=== PATIENT | female | born 1960 | race Caucasian/White ===

== ENCOUNTER → 2020-07-31 | Outpatient (CLI) | payer BC ==
--- NOTE | 2020-07-31 09:58 | Diagnostic Imaging Report ---
PROCEDURE: US Hepatic (Liver). TECHNIQUE: Multiple real-time grayscale images were obtained over the right upper quadrant in various projections. INDICATION: Elevated liver enzymes Liver has increased echogenicity suggesting fatty infiltration. The portal vein is patent with hepatopetal flow. There are calculi in the gallbladder. The gallbladder wall is not thickened. Common duct is not appreciably dilated. Visualized portions of the pancreas appear normal. The aorta and IVC appear normal. Right kidney measures 10.8 cm length and appears normal. There is no ascites. IMPRESSION: Cholecystolithiasis. Hepatic steatosis. Dictated by: Dictated on workstation # [id number]
== END ==
LOC: RAD 09:00
PROVIDERS: ATTEND Nurse Practitioner
DX: K76.0 Fatty (change of) liver, not elsewhere classified (principal); K80.20 Calculus of gallbladder without cholecystitis without obstruction
CPT/HCPCS: 76705

== ENCOUNTER 2020-09-10 11:25 | Outpatient (CLI) | payer BC ==
[~2020-09-10] VITALS: Ht 167.6 cm; Wt 65.4 kg
[2020-09-10] MEDS ORDERED: [UNRECOGNIZED DRUG - OTHER] PO (14:40)
[2020-09-10] MEDS ORDERED: FENO160T12 PO (14:40)
[2020-09-10] MEDS ORDERED: DULO60CA59 PO (14:40)
[2020-09-10] MEDS ORDERED: OMEP40CA27 PO (14:40)
[2020-09-10] MEDS ORDERED: GABA300C PO (14:40)
[2020-09-10] MEDS ORDERED: BUPR300T98 PO (14:40)
[2020-09-10] MEDS ORDERED: ERGO2000 PO (14:40)
== END 2020-09-10 14:43 | disposition home or self-care (01) ==
LOC: PREOP 11:25
PROVIDERS: ATTEND Surgery
DX: Z01.818 Encounter for other preprocedural examination (principal)

== ENCOUNTER 2020-11-13 06:39 | Outpatient (CLI) | payer BC ==
[~2020-11-13] VITALS: Ht 167.7 cm; Wt 65.0 kg
[~2020-11-13 06:39] MED LIST: BUPR300T98 PO; DULO60CA59 PO; ERGO2000 PO; FENO160T12 PO; GABA300C PO; OMEP40CA27 PO; [UNRECOGNIZED DRUG - OTHER] PO
== END 2020-11-17 11:00 | disposition home or self-care (01) ==
LOC: PREOP 06:39
PROVIDERS: ATTEND Surgery
DX: Z01.818 Encounter for other preprocedural examination (principal)

== ENCOUNTER 2020-11-20 09:33 | Day surgery (SDC) | payer BC, MEDICARE ==
[2020-11-20] VITALS (11 sets, daily range): BP systolic 122–143; BP diastolic 64–82
[~2020-11-20] VITALS: Ht 167.7 cm; Wt 65.0 kg
[~2020-11-20 09:33] MED LIST changes: -OMEP40CA27 PO; +OMEP40CA6 PO
[2020-11-20] MEDS ORDERED: ceFAZolin INJECTION 1,000 MG in WATER (STERILE) FOR INJECTION 10 ML IV ONE (10:00)
[2020-11-20] MEDS ORDERED: LIDOCAINE/EPI 1%-1:200,000 (XYLOCAINE) 30 ML VIAL ONE (10:36)
--- NOTE | 2020-11-20 10:40 | Progress Note-Pre Operative ---
Pre-Operative Progress Note H&P Reviewed The H&P was reviewed, patient examined and no changes noted. Date Seen by Provider: Nov 20, 2020 Time Seen by Provider: 10: Date H&P Reviewed: Nov 20, 2020 Time H&P Reviewed: 10:30 Pre-Operative Diagnosis: sx chronic calculous cholecystitis JUAN LAMA MD Nov 20, 2020 10:40
--- NOTE | 2020-11-20 10:41 | Discharge Inst-Surgical ---
D/C Lap Instructions-KELBY New, Converted, or Re-Newed RX: RX on Chart Follow Up Appt in 2 weeks Activity as tolerated No driving for 24 hours No driving while on pain medications Incentive Spirometry use every 2 hours while awake Regular Diet Symptoms to Report: Fever over 101 degree F, Nausea/Vomiting Infection Signs and Symptoms to report: Increased redness, Foul odor of wound, Increased drainage Bathing instructions: May shower Operative Area Clean/Dry; Keep incision clean/dry If any problems/questions: Contact your physician or go to Emergency Room JUAN LAMA MD Nov 20, 2020 10:41
[2020-11-20] MEDS ORDERED: HYDROcodone/APAP 5 MG/325 MG (LORTAB) TAB PO PRN (10:45)
[2020-11-20] MEDS ORDERED: morphine INJ 10 MG/ML 1ML (SYR OR VIAL) IVP PRN ×2 (10:45)
[2020-11-20] MEDS ORDERED: ONDANSETRON 4 MG/2 ML (SDV) Z0FRAN IVP PRN ×2 (10:45→13:00)
[2020-11-20] MEDS ORDERED: ACETAMINOPHEN 325 MG TABLET PO PRN (10:45)
[2020-11-20] MEDS ORDERED: HYDR-3817 PO (10:49)
[2020-11-20] MEDS ORDERED: MIDAZOLAM 2 MG/2 ML (VERSED) VIAL ONE ×2 (10:53→10:58)
[2020-11-20] MEDS ORDERED: ONDANSETRON 4 MG/2 ML (SDV) Z0FRAN ONE (10:57)
[2020-11-20] MEDS ORDERED: proPOfol 200 MG/20 ML (DIPRIVAN) VIAL IV ONE (10:57)
[2020-11-20] MEDS ORDERED: LIDOCAINE PF 2% 5 ML (XYLOCAINE) VIAL ONE (10:57)
[2020-11-20] MEDS ORDERED: SEVOFLURANE (ULTANE) 15 ML INHAL SOLN ONE (10:57)
[2020-11-20] MEDS: LACTATED RINGERS 1,000 ML IV PRN ×2 (10:58→12:12)
[2020-11-20] MEDS ORDERED: fentaNYL INJ 100 MCG/2 ML AMP ONE ×2 (10:58→13:00)
[2020-11-20] MEDS ORDERED: MIDAZOLAM 2 MG/2 ML (VERSED) VIAL IV ONE ×2 (11:00)
[2020-11-20] MEDS ORDERED: FAMOTIDINE 20MG/2ML IV (PEPCID) IV ONE ×2 (11:00)
[2020-11-20] MEDS ORDERED: ONDANSETRON 4 MG/2 ML (SDV) Z0FRAN IV ONE ×2 (11:00)
[2020-11-20] MEDS ORDERED: ROCURONIUM 10 MG/ML 5 ML SYRINGE IV ONE (11:51)
[2020-11-20] MEDS ORDERED: morphine INJ 10 MG/ML 1ML (SYR OR VIAL) ONE (12:22)
[2020-11-20] MEDS ORDERED: ATROPINE INJ 0.4 MG/ML SDV ONE (12:23)
[2020-11-20] MEDS ORDERED: NEOSTIGMINE 3 MG/3 ML VIAL ONE (12:40)
[2020-11-20] MEDS ORDERED: GLYCOPYRROLATE 0.2 MG/ML (ROBINUL) 2 ML VIAL ONE (12:40)
--- NOTE | 2020-11-20 12:41 | Progress Note-Post Operative ---
Post-Operative Progess Note Surgeon (s)/Photoengraving Apprentice (s) Surgeon JUAN LAMA MD Photoengraving Apprentice: kathleen guzman DATABASE SOFTWARE TECHNICIAN Pre-Operative Diagnosis sx chronic calculous cholecystitis Post-Operative Diagnosis same Procedure & Operative Findings Date of Procedure 11/20/20 Procedure Performed/Findings laparoscopic cholecystectomy Anesthesia Type get Estimated Blood Loss Estimated blood loss (mL): minimal Specimens/Packing Specimens Removed gallbladder JUAN LAMA MD Nov 20, 2020 12:41
[2020-11-20] MEDS ORDERED: morphine INJ 10 MG/ML 1ML (SYR OR VIAL) IVP ONE (13:00)
[2020-11-20] MEDS ORDERED: MEPERIDINE (DEMEROL) INJ 50 MG/ML IVP ONE (13:00)
[2020-11-20] MEDS ORDERED: fentaNYL INJ 100 MCG/2 ML AMP IVP ONE (13:00)
--- NOTE | 2020-11-20 13:32 | Anesthesia-General Post-Op ---
General Patient Condition Mental Status/LOC: Same as Preop Cardiovascular: Satisfactory Nausea/Vomiting: Absent Respiratory: Satisfactory Pain: Controlled Complications: Absent Post Op Complications Complications None Follow Up Care/Instructions Patient Instructions None needed. Anesthesia/Patient Condition Patient Condition Patient is doing well, no complaints, stable vital signs, no apparent adverse anesthesia problems. LUTHER OSWALD DO Nov 20, 2020 13:32
--- NOTE | 2020-11-20 17:25 | OPERATIVE REPORT ---
DATE OF SERVICE: 11/20/2020 PREOPERATIVE DIAGNOSIS: Symptomatic chronic calculous cholecystitis. POSTOPERATIVE DIAGNOSIS: Symptomatic chronic calculous cholecystitis. PROCEDURE: Laparoscopic cholecystectomy. SURGEON: Juan Lama MD. ANESTHESIA: General endotracheal. ESTIMATED BLOOD LOSS: Minimal. FINDINGS: Solitary stone. DISPOSITION: The patient tolerated the procedure well. INDICATIONS: The patient is a 60-year-old female referred over to us for symptomatic cholelithiasis. She has known about this for greater than 10 years; however, she has had progressive symptoms with a right upper abdominal quadrant pain with associated nausea and vomiting, which was initially mild and infrequent; however, has become significantly more severe as well as more frequent. Formal ultrasound was performed, which did show cholelithiasis. DESCRIPTION OF PROCEDURE: The patient was brought to the operating room, laid supine on the table. After adequate IV pain and sedative medications and general endotracheal intubation, the abdomen was prepped and draped in standard surgical fashion. A 0.5% Marcaine with epinephrine was used to anesthetize the overlying skin in the left upper abdominal quadrant and a transverse skin incision made using a 15 blade. An 0 silk suture was applied to the medial aspect incision for retraction and a Veress needle inserted with a low opening pressure of 0 mmHg. The abdomen was then insufflated to 15 mmHg pressure. The Veress needle removed and a 5 mm XL trocar placed followed by a 5 mm 45-degree angle laparoscope visualizing the peritoneal cavity. A 4-quadrant abdominal exploration was performed. There were omental adhesions towards the fundus of the gallbladder. Under direct visualization, we then proceed to place a supraumbilical 10 mm port after the skin and peritoneal lining were anesthetized using 0.5% Marcaine with epinephrine and a transverse skin incision made using a 15 blade. In a similar manner, a right upper abdominal quadrant 5 mm port was placed. The patient was then placed in a reverse Trendelenburg position as well as plane right side up, left side down. The fundus of the gallbladder was then retracted anteriorly and superiorly. The omental adhesions were then taken down using blunt dissection. The hepatoduodenal ligament was then dissected using blunt dissection as well as electrocautery on hook instrument as well as a [place] dissector. The entire critical view of safety was identified including the triangle of Calot as well as the cystic duct and artery as only two structures going into the gallbladder as well as the cystic plate behind the proximal gallbladder. A timeout was then taken and the cystic duct and artery were then clipped proximally and distally and cut with EndoShears. The gallbladder was then dissected off the liver bed using cautery with visualization of good hemostasis as well as no leaking ducts of Luschka. The gallbladder was removed through the 10 mm port site using an EndoCatch bag. The 10 mm port site fascia and peritoneum were then closed under direct visualization using a Tunde-Rupesh device and 0 Vicryl suture. The abdomen was desufflated and remaining ports were removed. All skin incisions were closed using 4-0 Monocryl running subcuticular suture. Wounds were then cleaned and covered with Dermabond. The patient tolerated the procedure well. We will start IV and oral pain medication as well as a clear liquid diet. When she is tolerating clears, has good pain control with oral pain medications, ambulating well, we will discharge her home. Job ID: [id number] DocumentID: [id number] Dictated Date: 11/20/2020 12:51:41 Boiling House Oiler Date: 11/20/2020 17:25:22 Dictated By: JUAN LAMA MD
--- NOTE | 2020-11-21 12:43 | HISTORY AND PHYSICAL ---
DATE OF SERVICE: 11/20/2020 PROCEDURE DATE: 11/20/2020. HISTORY OF PRESENT ILLNESS: This is a 60-year-old female who was referred over to us for gallstones. She reports that for the past several years. She has had episodes of reflux, and diarrhea as well as pain beneath the posterior right shoulder blade as well as some nausea. She reports that over time that her symptoms have progressed and become worse and has even had episodes of vomiting. She reports that over the last 2 to 3 months, she has had several episodes of diarrhea daily as well as the nausea and will occasionally have some vomiting. She reports that she continues to have the back pain beneath the posterior right shoulder blade as well as reflux and bloating. She did have recent lab work, which did show increased liver enzymes and underwent an ultrasound of the liver, which did show fatty infiltration as well as cholelithiasis. Upon further questioning, she denied any foods that make her symptoms worse. She also denied any fever or chills. PAST MEDICAL HISTORY: Gastroesophageal reflux disease, hypercholesterolemia, hypertension, chronic back pain, L4-L5 bulging disk. PAST SURGICAL HISTORY: Complete vaginal hysterectomy in 2011, bilateral cataracts. ALLERGIES: No known drug allergies. MEDICATIONS: Gabapentin 300 mg b.i.d., tramadol, fenofibrate 160 mg daily, duloxetine 60 mg daily, bupropion XL 300 mg daily, vitamin D2, Omeprazole 40 mg daily, estradiol, progesterone. SOCIAL HISTORY: Positive for tobacco smoke at half a pack per day for 20 years. Social for alcohol. FAMILY HISTORY: Father, hypertension. Brother, hypertension. Child with hypertension. Maternal grandmother, breast cancer, paternal grandfather, myocardial infarction. Paternal grandmother, stroke. VITAL SIGNS: Blood pressure is 134/83. Current weight 144.1 pounds at 5 feet 6 inches. REVIEW OF SYSTEMS: This is a well-nourished female in no acute distress. She is not experiencing any shortness of breath or difficulty breathing. No chest pain, palpitations or diaphoresis. She does report episodes of nausea and vomiting. She denies any abdominal pain, but did report pain of the right posterior shoulder blade. She did report episodes of diarrhea, but denies any constipation. She reports reflux. No red blood per rectum. No dark tarry stools. No fever or chills. No recent inadvertent weight loss. All other review of systems negative. PHYSICAL EXAMINATION: CHEST: Clear. Good breath sounds bilaterally. HEART: Regular, no murmurs. EXTREMITIES: No lower extremity edema. Negative Homans sign. HEENT: No scleral icterus. NECK: No cervical lymphadenopathy. ABDOMEN: Soft, nondistended. There is some right upper quadrant tenderness with moderate to deep palpation. SKIN: Warm, dry and pink. NEUROLOGIC: Awake, alert and oriented x3. ASSESSMENT AND PLAN: A 60-year-old female with chronic calculous cholecystitis. At this time, we will recommend proceeding with a laparoscopic cholecystectomy. The risks and benefits of the procedure as well as the procedure and homecare instructions were explained to the patient. The patient verbalized understanding of instructions and agrees to proceed as planned. At this time, we will proceed with scheduling her for a laparoscopic cholecystectomy. Job ID: [id number] DocumentID: [id number] Dictated Date: 11/04/2020 13:37:33 Supply Specialist Date: 11/04/2020 13:52:19 Dictated By: BORIS MIX APRN <Dictated by BORIS MIX APRN> <Electronically signed by JUAN LAMA MD> 11/04/20 1551 [facility] SYSTEM[facility]ato
== END 2020-11-20 15:05 ==
LOC: SDC 09:33
PROVIDERS: ATTEND Surgery
DX: K80.10 Calculus of gallbladder with chronic cholecystitis without obstruction (principal); K66.0 Peritoneal adhesions (postprocedural) (postinfection); I10 Essential (primary) hypertension; E78.5 Hyperlipidemia, unspecified; E78.00 Pure hypercholesterolemia, unspecified; G89.29 Other chronic pain; M54.9 Dorsalgia, unspecified; K21.9 Gastro-esophageal reflux disease without esophagitis; F17.210 Nicotine dependence, cigarettes, uncomplicated; Z90.710 Acquired absence of both cervix and uterus; Z79.899 Other long term (current) drug therapy; Z80.3 Family history of malignant neoplasm of breast; Z82.3 Family history of stroke
CPT/HCPCS: 87081

== ENCOUNTER → 2021-02-10 | Outpatient (CLI) | payer BC, OTHER ==
[~2021-02-10] MED LIST changes: +HYDR-3817 PO
--- NOTE | 2021-02-10 10:39 | Diagnostic Imaging Report ---
EXAMINATION: Lumbosacral spine 2 or 3 views. HISTORY: Back pain. COMPARISON: None available. FINDINGS: There is a mild levoconvex scoliosis. There is minimal grade 1 retrolisthesis of L3 on L4 with remaining alignment preserved. Vertebral body heights maintained. Facet hypertrophy is seen throughout the lumbar spine with intervertebral disc space narrowing at all levels, most marked at L4-L5 and L5-S1. No acute osseous abnormality is appreciated. There are clips in the right upper quadrant. IMPRESSION: 1. Scoliotic deformity with degenerative findings as noted. Dictated by: Dictated on workstation # [id number]
== END ==
LOC: RAD 09:47
PROVIDERS: ATTEND Family Medicine
DX: Z02.71 Encounter for disability determination (principal); M47.817 Spondylosis without myelopathy or radiculopathy, lumbosacral region; M41.87 Other forms of scoliosis, lumbosacral region
CPT/HCPCS: 72100

== ENCOUNTER 2022-05-13 18:37 | Inpatient (IN) | payer BC ==
[~2022-05-13] VITALS: Ht 167 cm; Wt 67.3 kg
--- NOTE | 2022-05-13 18:58 | ED Chest Pain ---
General Chief Complaint: Chest Pain Stated Complaint: CHEST PAINS History of Present Illness Date Seen by Provider: May 13, 2022 Time Seen by Provider: 18:35 Initial Comments 62-year-old female presents for chest pain. It was intermittent yesterday and has been constant for about the last hour. No history of cardiac disease. No history of lung disease. She has felt generally weak and is feeling short of breath. She describes her pain as starting in her left jaw yesterday intermittently as tightness. She now has tightness and pressure in her anterior chest that radiates to her back. No aggravating or alleviating factors and is constant, severe. No nausea vomiting diaphoresis. No unilateral lower extremity pain or swelling. No history of DVT, PE. She does have a history of hypertension and hyperlipidemia. Allergies and Home Medications Allergies Coded Allergies: No Known Drug Allergies (Unverified , 11/17/20) Patient Home Medication List Home Medication List Reviewed: Yes Alprazolam (Alprazolam) 0.5 Mg Tablet, 0.5 MG PO HS PRN for ANXIETY, (Reported) Entered as Reported by: FERNANDA MEAD on 05/14/221426 Last Action: Reviewed Bupropion HCl (Bupropion Xl) 300 Mg Tab.er.24h, 300 MG PO DAILY, (Reported) Entered as Reported by: JAIDA GUZMAN on 09/10/201439 Last Action: Reviewed Duloxetine HCl (Duloxetine HCl) 60 Mg Capsule.dr, 60 MG PO DAILY, (Reported) Entered as Reported by: JAIDA GUZMAN on 09/10/201439 Last Action: Reviewed Fenofibrate (Fenofibrate) 160 Mg Tablet, 160 MG PO DAILY, (Reported) Entered as Reported by: JAIDA GUZMAN on 09/10/201439 Last Action: Reviewed Gabapentin (Neurontin) 300 Mg Capsule, 300 MG PO BID PRN for PAIN-BREAKTHROUGH, (Reported) Entered as Reported by: JAIDA GUZMAN on 09/10/201439 Last Action: Reviewed Levothyroxine Sodium (Levothyroxine Sodium) 50 Mcg Tablet, 50 MCG PO DAILY, (Reported) Entered as Reported by: FERNANDA MEAD on 05/14/221426 Last Action: Reviewed Pantoprazole Sodium (Pantoprazole Sodium) 20 Mg Tablet.dr, 20 MG PO BID, (Reported) Entered as Reported by: FERNANDA MEAD on 05/14/221426 Last Action: Reviewed Tramadol HCl (Tramadol HCl) 50 Mg Tablet, 50 MG PO BID PRN for PAIN-MODERATE (5- 7), (Reported) Entered as Reported by: FERNANDA MEAD on 05/14/221426 Last Action: Reviewed [Estradiol/Progestero] 3.5/300 CAP, 1 EA PO DAILY, (Reported) Entered as Reported by: FERNANDA MEAD on 05/14/221426 Last Action: Reviewed Discontinued Medications Ergocalciferol (Vitamin D2) (Vitamin D2) 50 Mcg Tablet, 50 MCG PO DAILY, (Reported) Discontinued Reason: No Longer Taking Entered as Reported by: JAIDA GUZMAN on 09/10/201439 Last Action: Discontinued Hydrocodone/Acetaminophen (Hydrocodone-Acetamin 7.5-325) 1 Each Tablet, 1 EACH PO Q4H PRN for PAIN-BREAKTHROUGH Discontinued Reason: No Longer Taking Prescribed by: BORIS MIX on 11/20/20 1049 Last Action: Discontinued Omeprazole (Omeprazole) 40 Mg Capsule., 40 MG PO DAILY, (Reported) Discontinued Reason: No Longer Taking Entered as Reported by: JAIDA GUZMAN on 09/10/201439 Last Action: Discontinued [estradiol-progester] , 1 TAB PO UD, (Reported) Discontinued Reason: Duplicate Order Entered as Reported by: JAIDA GUZMAN on 09/10/201439 Last Action: Discontinued Review of Systems Review of Systems Constitutional: weakness EENTM: No Symptoms Reported Respiratory: Shortness of Air Cardiovascular: Chest Pain Gastrointestinal: No Symptoms Reported Genitourinary: No Symptoms Reported Musculoskeletal: no symptoms reported Skin: no symptoms reported Psychiatric/Neurological: No Symptoms Reported Endocrine: No Symptoms Reported Hematologic/Lymphatic: No Symptoms Reported Past [id number] Hx Patient Social History Tobacco Use?: No Use of E-Cig and/or Vaping dev: No Substance use?: No Alcohol Use?: No Seasonal Allergies Seasonal Allergies: No Past Medical History Surgery/Hospitalization HX: Hypertension, hyperlipidemia Surgeries: Yes (STONE BASKET RETRIEVAL) Hysterectomy Respiratory: No Currently Using CPAP: No Currently Using BIPAP: No Cardiac: Yes (IRREGULAR WITH PVC'S) High Cholesterol, Irregular Heartbeat Neurological: Yes Headaches /Migraines 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 Genitourinary: Yes Kidney Stones Gastrointestinal: Yes Gastroesophageal Reflux, Hemorrhoids, Chronic Diarrhea, Gall Bladder Disease Musculoskeletal: Yes (BULGING DISC) Arthritis, Chronic Back Pain Endocrine: No HEENT: No (cataracts removed, veneers on teeth) Cancer: No Psychosocial: Yes Anxiety Integumentary: No Blood Disorders: No Family Medical History Reviewed Nursing Family Hx No Pertinent Family Hx Physical Exam Vital Signs Vital Signs - First Documented 05/13/22 18:46 Temp 36.3 Pulse 62 Resp 16 B/P (MAP) 144/83 (103) Pulse Ox 100 O2 Delivery Room Air Capillary Refill : Height, Weight, BMI Height: '" Weight: lbs. oz. kg; 23.11 BMI Method: General Appearance: WD/WN, Moderate Distress (Appears to be in significant amount of pain) Neck: Normal Inspection, Non Tender, Supple Respiratory: Chest Non Tender, Lungs Clear, Normal Breath Sounds, No Accessory Muscle Use, No Respiratory Distress Cardiovascular: Regular Rate, Rhythm, No Edema, No Murmur, Normal Peripheral Pu lses Gastrointestinal: Normal Bowel Sounds, No Organomegaly, No Pulsatile Mass, Non Tender, Soft Extremity: Normal Capillary Refill, Normal Inspection, Normal Range of Motion, Non Tender, No Calf Tenderness Neurologic/Psychiatric: Alert, Oriented x3, Normal Mood/Affect Skin: Normal Color, Warm/Dry Lymphatic: No Adenopathy Procedures/Interventions Additional Procedures: cardioversion/defib Progress Awaiting Hand Model to arrive the patient had ventricular fibrillation where she went unresponsive. This was recognized immediately and synchronized cardioversion performed at 200 J with return of sinus rhythm and consciousness. She had stable blood pressure thereafter. She was then taken to the Hand Model emergently immediately after cardioversion. Critical Care Note Critical Care Total Time (minutes) 30 Progress/Results/Core Measures Results/Orders Lab Results Laboratory Tests Test 05/13/22 18:55 Range/Units White Blood Count 14.9 H 4.3-11.0 10^3/uL Red Blood Count 4.41 3.80-5.11 10^6/uL Hemoglobin 14.7 11.5-16.0 g/dL Hematocrit 41 35-52 % Mean Corpuscular Volume 94 80-99 fL Mean Corpuscular Hemoglobin 33 25-34 pg Mean Corpuscular Hemoglobin Concent 36 32-36 g/dL Red Cell Distribution Width 11.5 10.0-14.5 % Platelet Count 359 130-400 10^3/uL Mean Platelet Volume 8.6 L 9.0-12.2 fL Immature Granulocyte % (Auto) 0 % Neutrophils (%) (Auto) 38 L 42-75 % Lymphocytes (%) (Auto) 54 H 12-44 % Monocytes (%) (Auto) 6 0-12 % Eosinophils (%) (Auto) 1 0-10 % Basophils (%) (Auto) 1 0-10 % Neutrophils # (Auto) 5.7 1.8-7.8 10^3/uL Lymphocytes # (Auto) 8.1 H 1.0-4.0 10^3/uL Monocytes # (Auto) 0.9 0.0-1.0 10^3/uL Eosinophils # (Auto) 0.2 0.0-0.3 10^3/uL Basophils # (Auto) 0.1 0.0-0.1 10^3/uL Immature Granulocyte # (Auto) 0.0 0.0-0.1 10^3/uL Neutrophils % (Manual) 38 % Monocytes % (Manual) 6 % Eosinophils % (Manual) 2 % Band Neutrophils 54 % Blood Morphology Comment NORMAL Prothrombin Time 12.4 12.2-14.7 SEC INR Comment 0.9 0.8-1.4 Activated Partial Thromboplast Time 26 24-35 SEC Sodium Level 143 135-145 MMOL/L Potassium Level 3.3 L 3.6-5.0 MMOL/L Chloride Level 107 98-107 MMOL/L Carbon Dioxide Level 19 L 21-32 MMOL/L Anion Gap 17 H 5-14 MMOL/L Blood Urea Nitrogen 8 7-18 MG/DL Creatinine 0.91 0.60-1.30 MG/DL Estimat Glomerular Filtration Rate 70 BUN/Creatinine Ratio 9 Glucose Level 119 H 70-105 MG/DL Calcium Level 10.2 H 8.5-10.1 MG/DL Corrected Calcium 10.0 8.5-10.1 MG/DL Magnesium Level 1.9 1.6-2.4 MG/DL Total Bilirubin 0.2 0.1-1.0 MG/DL Aspartate Amino Transf (AST/SGOT) 18 5-34 U/L Alanine Aminotransferase (ALT/SGPT) 18 0-55 U/L Alkaline Phosphatase 101 40-136 U/L Myoglobin 31.5 10.0-92.0 NG/ML Troponin I 0.045 H <0.028 NG/ML Total Protein 7.6 6.4-8.2 GM/DL Albumin 4.3 3.2-4.5 GM/DL My Orders Orders - TOMMYDINORAH Manjarrez Hugh DO Ekg Tracing (05/13/22 18:43) Nitroglycerin 0.4 Mg Btl 25's (Nitrostat (05/13/22 19:00) Aspirin Chewable Tablet (Baby Aspirin Ch (05/13/22 19:00) Cbc With Automated Diff (05/13/22 18:53) Magnesium (05/13/22 18:53) Chest 1 View, Ap/Pa Only (05/13/22 18:53) Comprehensive Metabolic Panel (05/13/22 18:53) Myoglobin Serum (05/13/22 18:53) Protime With Inr (05/13/22 18:53) Partial Thromboplastin Time (05/13/22 18:53) Monitor-Rhythm Ecg Trace Only (05/13/22 18:53) Ed Iv/Invasive Line Start (05/13/22 18:53) Troponin I Coal (05/13/22 18:53) Manual Differential (05/13/22 18:55) Vital Signs/I&O 05/13/22 18:46 Temp 36.3 Pulse 62 Resp 16 B/P (MAP) 144/83 (103) Pulse Ox 100 O2 Delivery Room Air EKG : Comment Sinus rhythm with a rate of 58 bpm. Normal intervals. Left axis deviation. ST elevation in 1 aVL V2 with reciprocal changes in 3 and aVF. No ectopy. Positive for STEMI Departure Communication (Admissions) EKG identified STEMI. I notified Dr. Patel at 1852. Request activation of the Hand Model. I have ordered aspirin and nitroglycerin for her. Pressures are stable at present. Unfortunately there is a delay in orthodontic laboratory technician staff arrival due to an accident in town delaying traffic. While awaiting the Hand Model the patient had a ventricular fibrillation arrest suddenly. This was identified immediately in a single synchronized fibrillation of 200 J was administered. Patient immediately resumed sinus rhythm. Was then answering questions. She was taken very shortly after to the Hand Model. Impression Primary Impression: STEMI (ST elevation myocardial infarction) Qualified Codes: I21.3 - ST elevation (STEMI) myocardial infarction of unspecified site Additional Impression: Ventricular fibrillation Disposition: ADMITTED INPATIENT Condition: Critical Admissions Decision to Admit Reason: Admit from ER (General) Decision to Admit/Date: May 13, 2022 Time/Decision to Admit Time: 18:52 Departure-Patient Inst. Referrals: RUMA VARGAS DO (PCP/Family) Primary Care Physician DINORAH SANDERS DO May 13, 2022 18:58
[2022-05-13] MEDS ORDERED: ASPIRIN 81 MG CHEW (CHILDREN'S ASA) PO ONE (19:00)
[2022-05-13] MEDS ORDERED: NITROGLYCERIN 0.4 MG SL TABS BTL 25'S SL PRN (19:00)
[2022-05-13] MEDS ORDERED: morphine INJ 10 MG/ML 1ML (SYR OR VIAL) IVP STA (19:00)
[2022-05-13] MEDS ORDERED: morphine INJ 10 MG/ML 1ML (SYR OR VIAL) ONE (19:00)
[2022-05-13 19:03] LABS: BASOPHILS # (AUTO) 0.1 10^3/uL (0.0-0.1); BASOPHILS % (AUTO) 1 % (0-10); EOSINOPHILS # (AUTO) 0.2 10^3/uL (0.0-0.3); EOSINOPHILS % (AUTO) 1 % (0-10); HEMATOCRIT 41 % (35-52); HEMOGLOBIN 14.7 g/dL (11.5-16.0); LYMPHOCYTES # (AUTO) 8.1 10^3/uL (1.0-4.0); LYMPHOCYTES % (AUTO) 54 % (12-44); MEAN CORPUSCULAR HEMOGLOBIN 33 pg (25-34); MEAN CORPUSCULAR HGB CONC 36 g/dL (32-36); MEAN CORPUSCULAR VOLUME 94 fL (80-99); MEAN PLATELET VOLUME 8.6 fL (9.0-12.2); MONOCYTES # (AUTO) 0.9 10^3/uL (0.0-1.0); MONOCYTES % (AUTO) 6 % (0-12); NEUTROPHILS # (AUTO) 5.7 10^3/uL (1.8-7.8); NEUTROPHILS % (AUTO) 38 % (42-75); PLATELET COUNT 359 10^3/uL (130-400); WHITE BLOOD COUNT 14.9 10^3/uL (4.3-11.0)
[2022-05-13] MEDS ORDERED: ONDANSETRON 4 MG/2 ML (SDV) Z0FRAN ONE (19:05)
--- NOTE | 2022-05-13 19:05 | Diagnostic Imaging Report ---
INDICATION: Chest pain. COMPARISON: None. FINDINGS: Single frontal radiographic view of the chest was obtained and shows normal cardiac silhouette. Pulmonary vasculature is mildly prominent. Pulmonary interstitium is also mildly diffusely prominent. There is no focal alveolar consolidation, large effusion or pneumothorax. Osseous structures show no gross acute abnormality. IMPRESSION: 1. Mild pulmonary vascular congestion. 2. Mild diffuse coarse prominence of the interstitium. This may be on the basis of underlying interstitial edema as well, although interstitial pneumonia or chronic interstitial lung disease is also within the differential. Dictated by: Dictated on workstation # [id number]
[2022-05-13] MEDS ORDERED: fentaNYL INJ 100 MCG/2 ML AMP ONE ×2 (19:09→19:13)
[2022-05-13] MEDS ORDERED: LIDOCAINE 1% INJ 30 ML (XYLOCAINE) VIAL ONE (19:13)
[2022-05-13] MEDS ORDERED: HEParin 1000 UNIT/ML (10ML VIAL) FOR BOLUS ONE (19:13)
[2022-05-13] MEDS ORDERED: MIDAZOLAM 5 MG/5 ML (VERSED) VIAL ONE (19:13)
[2022-05-13] MEDS ORDERED: NS IV 1000 ML 1,000 ML ONE (19:14)
[2022-05-13] MEDS ORDERED: NITRO DRIP 25000 MCG/D5W 0 ML IV ONE (19:14)
[2022-05-13] MEDS ORDERED: HEParin (CATH LAB) 2,000 ML IV ONE (19:14)
[2022-05-13 19:15] LABS: ALBUMIN 4.3 GM/DL (3.2-4.5); POTASSIUM 3.3 MMOL/L (3.6-5.0)
[2022-05-13] MEDS ORDERED: ONDANSETRON 4 MG/2 ML (SDV) Z0FRAN IVP ONE (19:15)
[2022-05-13] MEDS ORDERED: fentaNYL INJ 100 MCG/2 ML AMP IVP PRN (19:15)
[2022-05-13 19:16] LABS: CALCIUM 10.2 MG/DL (8.5-10.1)
[2022-05-13 19:17] LABS: TOTAL PROTEIN 7.6 GM/DL (6.4-8.2)
[2022-05-13 19:19] LABS: BILIRUBIN,TOTAL 0.2 MG/DL (0.1-1.0)
[2022-05-13 19:21] LABS: CREATININE SERUM 0.91 MG/DL (0.60-1.30)
[2022-05-13 19:24] LABS: MAGNESIUM 1.9 MG/DL (1.6-2.4)
[2022-05-13 19:42] LABS: INR 0.9 (0.8-1.4); PROTHROMBIN TIME PATIENT 12.4 SEC (12.2-14.7)
[2022-05-13] MEDS ORDERED: EPTIFIBATIDE BOLUS 10 ML IV ONE (19:47)
[2022-05-13 19:59] LABS: BAND NEUTROPHILS 54 %; EOSINOPHILS % (MANUAL) 2 %; MONOCYTES % (MANUAL) 6 %; NEUTROPHILS % (MANUAL) 38 %; RBC MORPH NORMAL
[2022-05-13] MEDS ORDERED: TICAGRELOR 90 MG TABLET (BRILINTA) PO ONE (20:13)
[2022-05-13] MEDS ORDERED: PATIENT MAY USE OWN MEDS, ALL PO SCH (20:15)
--- NOTE | 2022-05-13 20:15 | Consultation-Cardiology ---
HPI-Cardiology Cardiology Consultation Date of Consultation 05/13/22 Date of Admission Time Seen by Provider: 07:00 Indication: Acute myocardial infarction HPI 62-year-old lady with history of back pain, hypothyroidism, hyperlipidemia. Has been having chest pain on and off for few days, has severe chest pain this afternoon and came into the emergency room for evaluation noted to have ST elevation AR in the anterior wall. Given aspirin, heparin, continue to have chest pain, had transient episode of ventricular fibrillation and received 1 shock. Home Medications & Allergies Allergies: Coded Allergies: No Known Drug Allergies (Unverified , 11/17/20) Home Medication List Reviewed: Yes IDB-Inybyi-Ehlacj Hx Patient Social History Marital Status: Employed/Student: retired Smoking Status: Current Everyday Smoker Type Used: Cigarettes 2nd Hand Smoke Exposure: Yes Recent Hopitalizations: No Have you traveled recently?: No Alcohol Use?: No Past Medical History Discussed below Family Medical History Significant Family History: No Pertinent Family Hx Review of Systems-General Review of Systems Constitutional: weakness EENTM: see HPI, no symptoms reported Respiratory: no symptoms reported, see HPI, short of breath Cardiovascular: see HPI, chest pain; No edema, No Hx of Intervention, No palpitations, No syncope, No vascular heart diseas, No other Gastrointestinal: no symptoms reported, see HPI Genitourinary: no symptoms reported, see HPI Musculoskeletal: no symptoms reported Skin: no symptoms reported Psychiatric/Neurological: No Symptoms Reported Reviewed Test Results Reviewed Test Results Lab Laboratory Tests Test 05/13/22 18:55 Range/Units White Blood Count 14.9 H 4.3-11.0 10^3/uL Red Blood Count 4.41 3.80-5.11 10^6/uL Hemoglobin 14.7 11.5-16.0 g/dL Hematocrit 41 35-52 % Mean Corpuscular Volume 94 80-99 fL Mean Corpuscular Hemoglobin 33 25-34 pg Mean Corpuscular Hemoglobin Concent 36 32-36 g/dL Red Cell Distribution Width 11.5 10.0-14.5 % Platelet Count 359 130-400 10^3/uL Mean Platelet Volume 8.6 L 9.0-12.2 fL Immature Granulocyte % (Auto) 0 % Neutrophils (%) (Auto) 38 L 42-75 % Lymphocytes (%) (Auto) 54 H 12-44 % Monocytes (%) (Auto) 6 0-12 % Eosinophils (%) (Auto) 1 0-10 % Basophils (%) (Auto) 1 0-10 % Neutrophils # (Auto) 5.7 1.8-7.8 10^3/uL Lymphocytes # (Auto) 8.1 H 1.0-4.0 10^3/uL Monocytes # (Auto) 0.9 0.0-1.0 10^3/uL Eosinophils # (Auto) 0.2 0.0-0.3 10^3/uL Basophils # (Auto) 0.1 0.0-0.1 10^3/uL Immature Granulocyte # (Auto) 0.0 0.0-0.1 10^3/uL Neutrophils % (Manual) 38 % Monocytes % (Manual) 6 % Eosinophils % (Manual) 2 % Band Neutrophils 54 % Blood Morphology Comment NORMAL Prothrombin Time 12.4 12.2-14.7 SEC INR Comment 0.9 0.8-1.4 Activated Partial Thromboplast Time 26 24-35 SEC Sodium Level 143 135-145 MMOL/L Potassium Level 3.3 L 3.6-5.0 MMOL/L Chloride Level 107 98-107 MMOL/L Carbon Dioxide Level 19 L 21-32 MMOL/L Anion Gap 17 H 5-14 MMOL/L Blood Urea Nitrogen 8 7-18 MG/DL Creatinine 0.91 0.60-1.30 MG/DL Estimat Glomerular Filtration Rate 70 BUN/Creatinine Ratio 9 Glucose Level 119 H 70-105 MG/DL Calcium Level 10.2 H 8.5-10.1 MG/DL Corrected Calcium 10.0 8.5-10.1 MG/DL Magnesium Level 1.9 1.6-2.4 MG/DL Total Bilirubin 0.2 0.1-1.0 MG/DL Aspartate Amino Transf (AST/SGOT) 18 5-34 U/L Alanine Aminotransferase (ALT/SGPT) 18 0-55 U/L Alkaline Phosphatase 101 40-136 U/L Myoglobin 31.5 10.0-92.0 NG/ML Troponin I 0.045 H <0.028 NG/ML Total Protein 7.6 6.4-8.2 GM/DL Albumin 4.3 3.2-4.5 GM/DL Physical Exam Physical Exam Vital Signs Vital Signs - First Documented 12/15/22 12/15/22 18:46 19:31 Temp 36.3 Pulse 62 Resp 16 B/P (MAP) 144/83 (103) Pulse Ox 100 O2 Delivery Room Air O2 Flow Rate 15.00 Capillary Refill : Less Than 3 Seconds Height, Weight, BMI Height: '" Weight: lbs. oz. kg; 20.00 BMI Method: General Appearance: WD/WN, Moderate Distress (Appears to be in significant amount of pain) Neck: Normal Inspection, Non Tender, Supple Respiratory: Chest Non Tender, Lungs Clear, Normal Breath Sounds, No Accessory Muscle Use, No Respiratory Distress Cardiovascular: Regular Rate, Rhythm, No Edema, No Murmur, Normal Peripheral Pulses Gastrointestinal: Normal Bowel Sounds, No Organomegaly, No Pulsatile Mass, Non Tender, Soft Extremity: Normal Capillary Refill, Normal Inspection, Normal Range of Motion, Non Tender, No Calf Tenderness Neurologic/Psychiatric: Alert, Oriented x3, Normal Mood/Affect Skin: Normal Color, Warm/Dry Lymphatic: No Adenopathy A/P-Cardiology Admission Diagnosis Acute ST elevation myocardial infarction Coronary artery disease Ventricular fibrillation Congestive heart failure, acute left ventricular systolic dysfunction, ischemic cardiomyopathy Assessment/Plan Acute ST elevation myocardial infarction in the anterior wall Emergency cardiac catheterization carried out with emergency balloon angioplasty and stenting to the ostial LAD with door to establish flow 60 minutes. Received 5000 units of heparin in the emergency room Received aspirin in the emergency room I added Brilinta. Status post sudden with ventricular fibrillation in the emergency room received 1 shock and returned to sinus rhythm. Congestive heart failure, acute left ventricular systolic dysfunction, ischemic cardiomyopathy, ejection fraction 40% with anterior wall hypokinesia Starting Coreg and losartan Hyperlipidemia, maintained on fenofibrate Starting Lipitor 80 mg daily Gastroesophageal reflux disease, maintained on Protonix History of chronic pain, back pain. Maintained on gabapentin Tobaccoism, educated on smoking cessation Clinical Quality Measures AMI/AHF: ASA po Prior to arrival: NIKITA Rosario MD May 13, 2022 20:15
--- NOTE | 2022-05-13 20:16 | Cardiac Procedure Note-CS/ASA ---
Pre-Procedure Note Pre-Op Procedure Note Date of Available H&P: May 13, 2022 Date H&P Reviewed: May 13, 2022 Time H&P Reviewed: 07:00 History & Physical: H&P Reviewed, Patient Examed, No changes noted Pre-Operative Diagnosis: STEMI Conscious Sedation Pre-Proced Time 07:00 ASA Score 3 For ASA 3 and 4: Consider anesthesia and medical clearance. Also, for patients with a history of failed moderate sedation consider anesthesia. Airway Lungs Heart ASA score ASA 1: a normal healthy patient ASA 2: a patient with a mild systemic disease (mid diabetes, controlled hypertension, obesity ASA 3: a patient with a severe systemic disease that limits activity (angina, COPD, prior Myocardial infarction) ASA 4: a patient with an incapacitating disease that is a constant threat to life (CHF, renal failure) ASA 5: a moribund patient not expected to survive 24 hrs. (ruptured aneurysm) ASA 6: a declared brain- patient whose organs are being harvested. For emergent operations, add the letter E after the classification Mallampati Classification Grade 3 Sedation Plan Analgesia, Amnesia, Plan communicated to team members, Discussed options with patient/fam, Discussed risks with patient/fam The patient is an appropriate candidate to undergo the planned procedure, sedation, and anesthesia. The patient immediately re-assessed prior to indication. NIKITA REYNOLDS MD May 13, 2022 20:16
--- NOTE | 2022-05-13 20:21 | Cardiac Cath Report ---
Cardiac Cath Report Physician (s)/Vacuum Drum Drier Operator (s) Physician NIKITA REYNOLDS MD Pre-Procedure Diagnosis Pre-Procedure Diagnosis: STEMI Post-Procedure Note Procedure Start Date: May 13, 2022 Name of Procedure: Left heart catheterization Emergency angioplasty and stenting to the ostial LAD Findings/Procedure Note PROCEDURE NOTE: 62-year-old lady admitted with acute ST elevation myocardial infarction, had ventricular fibrillation in the emergency room received 1 shock. Brought for emergency cardiac catheterization. After explaining the procedure to the patient, all pros and cons were explained, all questions were answered. The patient signed the consent and then she was placed in the cardiac catheterization laboratory. Groin was prepped in SL fashion local anesthesia was used. Sheath placed in the right femoral artery, I advanced Dexter right catheter to the right coronary artery and angiogram was done. Then used EBU guide advanced at the left coronary system, angiogram showed total occlusion of the proximal/ostial LAD with ELLIOT 1 flow, BMW wire was advanced and parked in the diagonal artery initially then corrected to the LAD distally, balloon angioplasty done with 2.5 x 20 mm trek balloon reestablishment of flow was at 60 minutes from door time. I proceeded with deployment of ole point Felisa stent 2.5 x 18 mm deployed under 10 sidney to 2.64 mm with excellent results. 0 residual stenosis, ELLIOT-3 flow postintervention. At the end of the procedure the sheath was removed. Closure device was deployed FINDINGS: Hemodynamics LV 127/7, end-diastolic pressure of 7 Aorta 140/63 mean of 95 ANATOMY: Left Main is free of obstructive disease Left Anterior Descending has thrombus with total occlusion at the proximal/ostial LAD successful balloon angioplasty and stenting using ole point Felisa 2.5 x 18 mm deployed under 10 sidney with 0% residual stenosis, preintervention ELLIOT flow 1 post intervention ELLIOT flow 3. Distal LAD has 50% stenosis Left Circumflex dominant large artery with no obstructive disease Right Coronary Artery small nondominant artery with 60% stenosis at the mid right coronary artery LV Gram was done showing dilated left ventricle with hypokinesia of the anterior wall anterior apex with ejection fraction 40% PERCUTANEOUS INTERVENTION: Pre stenosis 100% Post Stenosis 0% Pre ELLIOT flow 1 Post ELLIOT flow 3 Dominance circumflex artery CONCLUSION: 1. Acute ST elevation myocardial infarction with emergency angioplasty and stenting to the ostial/proximal LAD with deployment of ole point Felisa 2.5 x 18 mm with excellent results 2. Otherwise mild to moderate disease in the mid to distal LAD, moderate disease in the mid small nondominant right coronary artery 3. Prominent left ventricle with hypokinesia of the anterior wall and anterior apex, ejection fraction 40% DISCUSSION AND RECOMMENDATION: Starting aspirin and Brilinta, adding Lipitor 80 mg daily, adding Coreg and losartan, continue to monitor Anesthesia Type: Conscious Sedation Estimated blood loss (mL): 25 ml Contrast Amount: 86 ml Total Radiation Dose: 250 mGy Post-Procedure Diagnosis Post-operative diagnosis: Acute ST elevation myocardial infarction Coronary artery disease Ventricular fibrillation Congestive heart failure, acute left ventricular systolic dysfunction, ischemic cardiomyopathy. NIKITA REYNOLDS MD May 13, 2022 20:21
[2022-05-13] MEDS: NS IV 1000 ML 1,000 ML IV SCH (21:32)
[2022-05-13] MEDS: TICAGRELOR 90 MG TABLET (BRILINTA) PO SCH (21:51)
[2022-05-13] MEDS: GABAPENTIN 400 MG (NEURONTIN) CAP PO SCH (21:51)
--- NOTE | 2022-05-13 22:17 | Tele-ICU Progress Note ---
Subjective Date Seen by a Provider: May 13, 2022 Time Seen by a Provider: 22:16 Subjective/Events-last exam (Tele-ICU Physician , consultation) Available chart/ vitals / labs / Images reviewed H&P is from ER notes Patient's information available about PMH, allergy reviewed in EMR. ROS as per chart and RN report Video assessment done using teleICU camera, rest of exam as per RN Discussed with RN. She is a 62-year-old female past medical history of hyperlipidemia, hypothyroidism and back pain presented to the emergency room with the chest pain on and off for a few days and today it is worse and admitted to the emergency room where she is found to have an ST segment elevation myocardial infarction in the anterior territory. Subsequently she had a an episode of ventricular fibrillation requiring 1 shock. Subsequently she was taken to the cardiac catheterization lab and angiogram done requiring PCI all LAD. Currently she is resting well. There is a normal telemetry ICU consultation but I have evaluated per ICU protocol. Impression 1. STEMI anterior wall 2. Hyperlipidemia 3. Hypothyroidism. Recommendations 1. Post STEMI and PCI orders per cardiology Sepsis Event Evaluation Height, Weight, BMI Height: '" Weight: lbs. oz. kg; 23.95 BMI Method: Exam Exam Patient acknowledged, consented, and participated in this virtual visit which was conducted using real time audio/video Vital Signs Date Time Temp Pulse Resp B/P (MAP) Pulse Ox O2 Delivery O2 Flow Rate FiO2 05/13/22 20:30 96 Room Air 05/13/22 19:31 36.3 101 16 153/85 93 OxyMask 15.00 05/13/22 19:12 36.3 05/13/22 19:01 36.3 05/13/22 18:46 36.3 62 16 144/83 (103) 100 Room Air Height & Weight Height: '" Weight: lbs. oz. kg; 23.95 BMI Method: General Appearance: WD/WN, Moderate Distress (Appears to be in significant amount of pain) Neck: Normal Inspection, Non Tender, Supple Respiratory: Chest Non Tender, Lungs Clear, Normal Breath Sounds, No Accessory Muscle Use, No Respiratory Distress Cardiovascular: Regular Rate, Rhythm, No Edema, No Murmur, Normal Peripheral Pulses Capillary Refill: Less Than 3 Seconds Extremity: Normal Capillary Refill, Normal Inspection, Normal Range of Motion, Non Tender, No Calf Tenderness Neurologic/Psychiatric: Alert, Oriented x3, Normal Mood/Affect Skin: Normal Color, Warm/Dry Lymphatic: No Adenopathy Results Lab Laboratory Tests 05/13/22 18:55 Assessment/Plan Assessment/Plan as above Critical Care: Critically Ill Patient Time spent with patient (mins): 15 ARMINDA RAM MD May 13, 2022 22:16
[2022-05-14 05:12] LABS: HEMATOCRIT 37 % (35-52); MEAN CORPUSCULAR HEMOGLOBIN 33 pg (25-34); MEAN CORPUSCULAR HGB CONC 35 g/dL (32-36); MEAN CORPUSCULAR VOLUME 95 fL (80-99); MEAN PLATELET VOLUME 8.8 fL (9.0-12.2); PLATELET COUNT 277 10^3/uL (130-400); WHITE BLOOD COUNT 14.2 10^3/uL (4.3-11.0)
[2022-05-14 05:18] LABS: ALBUMIN 3.6 GM/DL (3.2-4.5); CHLORIDE 107 MMOL/L (98-107); POTASSIUM 3.4 MMOL/L (3.6-5.0); SODIUM 137 MMOL/L (135-145)
[2022-05-14 05:20] LABS: TRIGLYCERIDES 555 MG/DL (<150)
[2022-05-14 05:21] LABS: GLUCOSE 117 MG/DL (70-105); TOTAL PROTEIN 6.3 GM/DL (6.4-8.2)
[2022-05-14 05:22] LABS: BILIRUBIN,TOTAL 0.4 MG/DL (0.1-1.0); CARBON DIOXIDE 19 MMOL/L (21-32)
[2022-05-14 05:24] LABS: ALKALINE PHOSPHATASE 87 U/L (40-136); CREATININE SERUM 0.73 MG/DL (0.60-1.30); GFR ESTIMATED 92
[2022-05-14 05:25] LABS: CHOLESTEROL 212 MG/DL (< 200)
[2022-05-14] MEDS: POTASSIUM CL 10MEQ/50ML IVPB 50 ML IV SCH (05:25)
[2022-05-14 05:26] LABS: BUN/CREATININE RATIO 15; HDL CHOLESTEROL 35 MG/DL (40-60)
[2022-05-14] MEDS: MAGNESIUM 1 GM/100 ML IVPB 100 ML IV SCH (05:26)
[2022-05-14] MEDS: KCL 20 MEQ TAB (K-DUR) PO SCH (05:26)
[2022-05-14 05:27] LABS: ALANINE AMINOTRANSFERASE 21 U/L (0-55)
[2022-05-14] MEDS ORDERED: NS IV 500 ML 500 ML IV PRN (05:30)
[2022-05-14] MEDS: NS IV 1000 ML 1,000 ML IV SCH ×2 (05:35→16:15)
[2022-05-14] MEDS: LEVOTHYROXINE 50 MCG (LEVOTHROID) TAB PO SCH (06:26)
[2022-05-14] MEDS: PANTOPRAZOLE 40 MG (PROTONIX) TAB PO SCH (06:26)
[2022-05-14] MEDS ORDERED: KCL 20 MEQ TAB (K-DUR) PO ONE (09:00)
[2022-05-14] MEDS: TICAGRELOR 90 MG TABLET (BRILINTA) PO SCH ×2 (09:15→20:45)
[2022-05-14] MEDS: LOSARTAN 25 MG (COZAAR) TAB PO SCH (09:15)
[2022-05-14] MEDS: GABAPENTIN 400 MG (NEURONTIN) CAP PO SCH ×2 (09:15→20:44)
[2022-05-14] MEDS: ASPIRIN E.C. 81 MG (ECOTRIN) TAB PO SCH (09:15)
--- NOTE | 2022-05-14 09:23 | Cardiology Progress Note ---
Subjective Date Seen by Provider: May 14, 2022 Time Seen by Provider: 09:21 Subjective/Events-last exam Patient was seen at bedside, feeling better. Had some chest pain last night on and off. Review of Systems General: No Chills, No Night Sweats, No Fatigue, No Malaise, No Appetite, No Ot her HEENT: No Head Aches, No Visual Changes, No Eye Pain, No Ear Pain, No Dysp hasia, No Sinus Congestion, No Post Nasal Drip, No Sore Throat, No Other Pulmonary: No Dyspnea, No Cough, No Pleuritic Chest Pain, No Other Cardiovascular: Chest Pain; No: Palpitations, Orthopnea, Paroxysmal Noc. Dyspnea, Edema, Lt Headedness, Other Objective-Cardiology Exam Last Set of Vital Signs Vital Signs 05/13/22 05/14/22 05/14/22 19:31 07:49 09:00 Temp 36.6 Pulse 74 Resp 10 B/P (MAP) 136/83 (100) Pulse Ox 96 O2 Delivery Room Air O2 Flow Rate 15.00 I&O Intake and Output 05/14/22 00:00 Daily Weight Change No General: Alert, Oriented X3, Cooperative HEENT: Atraumatic, PERRLA Neck: Supple, No JVD, No Thyromegaly Lungs: Clear to Auscultation, Normal Air Movement Heart: Regular Rate, Normal S1, Normal S2, No Murmurs Abdomen: Normal Bowel Sounds, Soft, No Tenderness, No Hepatosplenomegaly, No Masses Extremities: No Clubbing, No Cyanosis, No Edema, Normal Pulses, No Tenderness/Swelling Skin: No Rashes, No Breakdown, No Significant Lesion Neuro: Normal Gait, Normal Speech, Strength at 5/5 X4 Ext, Normal Tone, Sensation Intact Psych/Mental Status: Mental Status NL, Mood NL Results Lab Laboratory Tests 05/13/22 18:55 05/14/22 04:45 A/P-Cardiology Admission Diagnosis Acute ST elevation myocardial infarction Coronary artery disease Ventricular fibrillation Congestive heart failure, acute left ventricular systolic dysfunction, ischemic cardiomyopathy Assessment/Plan Acute ST elevation myocardial infarction in the anterior wall Emergency cardiac catheterization carried out with emergency balloon angioplasty and stenting to the ostial LAD with door to establish flow 60 minutes. Maintained on aspirin and Brilinta Recurrent chest pain on and off. Had moderate stenosis in the mid LAD and mid right coronary artery. I will add Imdur and evaluate tolerance and response Status post sudden with ventricular fibrillation in the emergency room received 1 shock and returned to sinus rhythm. Congestive heart failure, acute left ventricular systolic dysfunction, ischemic cardiomyopathy, ejection fraction 40% with anterior wall hypokinesia Started on Coreg and losartan I am adding Aldactone, isosorbide and Jardiance Hyperlipidemia, maintained on fenofibrate Starting Lipitor 80 mg daily Gastroesophageal reflux disease, maintained on Protonix History of chronic pain, back pain. Maintained on gabapentin Tobaccoism, educated on smoking cessation NIKITA REYNOLDS MD May 14, 2022 09:23
[2022-05-14] MEDS: ISOSORBIDE MONONITRATE 30 MG (IMDUR) TAB PO SCH (09:36)
--- NOTE | 2022-05-14 10:47 | Consultation ---
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 She has no recollection of that event. Currently she is doing well and will be monitored on telemetry closely overnight. She has had some significant weight loss and she has been providing caretaking to her father who lives in [place], [place] so she has been under a lot of stress going back and forth. Source: patient, family Exam Limitations: no limitations Date Seen 05/14/22 Attending Physician Chary Rico DO PCP Admitting Physician: Mara Patel MD Attending Physician: Mara Patel MD Referring Physician Date of Admission May 13, 2022 at 20:27 Home Medications & Allergies Home Medications Reviewed patient Home Medication Reconciliation performed by pharmacy medication reconciliations water supply technician and/or nursing. Patients Allergies have been reviewed. Allergies Allergies Coded Allergies No Known Drug Allergies (Unverified11/17/20) Past Hwzfwwn-Gskzvy-Nkrahe Hx Past Med/Social Hx: Reviewed Nursing Past Med/Soc Hx, Reviewed and Corrections made Patient Social History Marrital Status: Employed/Student: retired Alcohol Beverage of Choice: Wine Smoking Status: Current Everyday Smoker Type Used: Cigarettes 2nd Hand Smoke Exposure: Yes Recent Hopitalizations: No Seasonal Allergies Seasonal Allergies: No Past Medical History Surgeries: Hysterectomy Currently Using CPAP: No Currently Using BIPAP: No Cardiac: High Cholesterol, Irregular Heartbeat Neurological: Headaches /Migraines Hysterectomy Genitourinary: Kidney Stones Gastrointestinal: Gastroesophageal Reflux, Hemorrhoids, Chronic Diarrhea, Gall Bladder Disease Musculoskeletal: Arthritis, Chronic Back Pain Psychosocial: Anxiety History of Blood Disorders: No Family History Reviewed Nursing Family Hx No Pertinent Family Hx Review of Systems Constitutional: see HPI, dizziness, malaise, weakness EENTM: no symptoms reported Respiratory: no symptoms reported Cardiovascular: no symptoms reported Gastrointestinal: no symptoms reported Genitourinary: no symptoms reported Musculoskeletal: no symptoms reported Skin: no symptoms reported Psychiatric/Neurological: No Symptoms Reported All Other Systems Reviewed Negative Unless Noted: Yes Physical Exam Physical Exam Vital Signs Vital Signs - First Documented 05/13/22 05/13/22 18:46 19:31 Temp 36.3 Pulse 62 Resp 16 B/P (MAP) 144/83 (103) Pulse Ox 100 O2 Delivery Room Air O2 Flow Rate 15.00 Capillary Refill : Less Than 3 Seconds Height, Weight, BMI Height: '" Weight: lbs. oz. kg; 23.95 BMI Method: General Appearance: WD/WN, Anxious, Chronically ill, Thin HEENT: PERRL/EOMI, Normal ENT Inspection, Pharynx Normal Neck: Normal Inspection, Non Tender, Supple Respiratory: Chest Non Tender, Lungs Clear, Normal Breath Sounds, No Accessory Muscle Use, No Respiratory Distress Cardiovascular: Regular Rate, Rhythm, No Edema, No Murmur, Normal Peripheral Pulses Gastrointestinal: Normal Bowel Sounds, No Organomegaly, No Pulsatile Mass, Non Tender, Soft Extremity: Normal Capillary Refill, Normal Inspection, Normal Range of Motion, Non Tender, No Calf Tenderness Neurologic/Psychiatric: Alert, Oriented x3, Normal Mood/Affect, Depressed Af fect Skin: Normal Color, Warm/Dry Lymphatic: No Adenopathy Results Results/Procedures Labs Laboratory Tests 05/13/22 18:55 05/14/22 04:45 Patient resulted labs reviewed. Assessment/Plan Assessment and Plan Assess & Plan/Chief Complaint Assessment: Status post STEMI with episode of ventricular fibrillation status post electrical shock in ER Status post stent placement during emergent cath Depression Hypothyroidism Recent weight loss Recent return to smoking Plan: Monitor on telemetry Discharge home tomorrow Maintained on protocol meds Critical Care Critically Ill Patient Diagnosis/Problems Diagnosis/Problems (1) STEMI (ST elevation myocardial infarction) Status: Acute Qualifiers: Involved coronary artery: unspecified coronary artery Qualified Codes: I21.3 - ST elevation (STEMI) myocardial infarction of unspecified site (2) Ventricular fibrillation Status: Acute Clinical Quality Measures AMI/AHF: ASA po Prior to arrival: CHARY Sierra DO May 14, 2022 10:47
--- NOTE | 2022-05-14 11:04 | Diagnostic Imaging Report ---
INDICATION: Shortness of breath. Chest pain. FINDINGS: PA and lateral views. The lungs are well-aerated and clear. There is no air-trapping. The heart is not enlarged. No pulmonary edema. No pneumothorax or pleural effusions. No bony abnormalities. IMPRESSION: Normal PA and lateral chest. Dictated by: Dictated on workstation # [id number]
[2022-05-14] MEDS: SPIRONOLACTONE 25 MG (ALDACTONE) TAB PO SCH (12:04)
[2022-05-14] MEDS: EMPAGLIFLOZIN 10 MG TABLET (JARDIANCE) PO SCH (12:04)
[2022-05-14] MEDS ORDERED: ALPR0.5T7 PO (14:27)
[2022-05-14] MEDS ORDERED: PANT20TA18 PO (14:27)
[2022-05-14] MEDS ORDERED: ESTRADIOL/PROGESTERO PO (14:27)
[2022-05-14] MEDS ORDERED: TRM50T PO (14:27)
[2022-05-14] MEDS ORDERED: LEVO50TA6 PO (14:27)
[2022-05-14] MEDS ORDERED: FENOFIBRATE 134 MG (LOFIBRA) CAPSULE PO SCH (21:00)
[2022-05-15] MEDS: NS IV 1000 ML 1,000 ML IV SCH ×2 (02:54→13:33)
[2022-05-15] MEDS ORDERED: ALPRAZolam 0.5 MG (XANAX) TAB PO PRN (05:15)
[2022-05-15] MEDS ORDERED: GABAPENTIN 300 MG (NEURONTIN) CAP PO PRN (05:15)
[2022-05-15] MEDS: LEVOTHYROXINE 50 MCG (LEVOTHROID) TAB PO SCH (06:27)
[2022-05-15] MEDS: PANTOPRAZOLE 40 MG (PROTONIX) TAB PO SCH (06:27)
[2022-05-15 07:09] LABS: BASOPHILS % (AUTO) 0 % (0-10); EOSINOPHILS # (AUTO) 0.1 10^3/uL (0.0-0.3); EOSINOPHILS % (AUTO) 1 % (0-10); HEMATOCRIT 38 % (35-52); HEMOGLOBIN 13.3 g/dL (11.5-16.0); LYMPHOCYTES # (AUTO) 2.8 10^3/uL (1.0-4.0); LYMPHOCYTES % (AUTO) 29 % (12-44); MEAN CORPUSCULAR HEMOGLOBIN 33 pg (25-34); MEAN CORPUSCULAR HGB CONC 35 g/dL (32-36); MEAN CORPUSCULAR VOLUME 94 fL (80-99); MEAN PLATELET VOLUME 8.6 fL (9.0-12.2); MONOCYTES # (AUTO) 0.7 10^3/uL (0.0-1.0); MONOCYTES % (AUTO) 8 % (0-12); NEUTROPHILS # (AUTO) 5.8 10^3/uL (1.8-7.8); NEUTROPHILS % (AUTO) 61 % (42-75); PLATELET COUNT 252 10^3/uL (130-400); WHITE BLOOD COUNT 9.4 10^3/uL (4.3-11.0)
[2022-05-15 07:27] LABS: CALCIUM 9.3 MG/DL (8.5-10.1); CREATININE SERUM 0.8 MG/DL (0.60-1.30); MAGNESIUM 1.9 MG/DL (1.6-2.4); POTASSIUM 3.8 MMOL/L (3.6-5.0)
[2022-05-15] MEDS: KCL 20 MEQ TAB (K-DUR) PO SCH (07:31)
[2022-05-15] MEDS: POTASSIUM CL 10MEQ/50ML IVPB 50 ML IV SCH (07:31)
[2022-05-15] MEDS: MAGNESIUM 1 GM/100 ML IVPB 100 ML IV SCH (07:31)
[2022-05-15] MEDS: ISOSORBIDE MONONITRATE 30 MG (IMDUR) TAB PO SCH (08:12)
[2022-05-15] MEDS: TICAGRELOR 90 MG TABLET (BRILINTA) PO SCH (08:12)
[2022-05-15] MEDS: LOSARTAN 25 MG (COZAAR) TAB PO SCH (08:12)
[2022-05-15] MEDS: SPIRONOLACTONE 25 MG (ALDACTONE) TAB PO SCH (08:12)
[2022-05-15] MEDS: ASPIRIN E.C. 81 MG (ECOTRIN) TAB PO SCH (08:12)
[2022-05-15] MEDS: EMPAGLIFLOZIN 10 MG TABLET (JARDIANCE) PO SCH (08:13)
[2022-05-15] MEDS ORDERED: PANTOPRAZOLE 20 MG TABLET (PROTONIX) PO SCH (09:00)
[2022-05-15] MEDS ORDERED: ESTRADIOL PO SCH (09:00)
[2022-05-15] MEDS ORDERED: DULoxetine 30 MG (CYMBALTA) CAP PO SCH (09:00)
[2022-05-15] MEDS ORDERED: NON-FORMULARY MEDICATION 1 EA EA (Fenofibrate 160 MG) PO SCH (09:00)
[2022-05-15] MEDS ORDERED: buPROPion SR 150 MG (WELLBUTRIN SR) TAB PO SCH (09:00)
[2022-05-15] MEDS ORDERED: LEVOTHYROXINE 50 MCG (LEVOTHROID) TAB PO SCH (09:00)
[2022-05-15] MEDS ORDERED: PROGESTERO PO SCH (09:00)
[2022-05-15] MEDS ORDERED: ACETAMINOPHEN 325 MG TABLET PO PRN (10:15)
[2022-05-15] MEDS ORDERED: PROCHLORPERAZINE 10 MG/2ML INJ (COMPAZINE) IV PRN (10:15)
[2022-05-15] MEDS ORDERED: EMPA10TA PO (10:30)
[2022-05-15] MEDS ORDERED: ISOS30TA82 PO (10:30)
[2022-05-15] MEDS ORDERED: LOSA25TA41 PO (10:30)
[2022-05-15] MEDS ORDERED: CARV3.122 PO (10:30)
[2022-05-15] MEDS ORDERED: ASPI-1238 PO (10:30)
[2022-05-15] MEDS ORDERED: TICA90TA PO (10:30)
[2022-05-15] MEDS ORDERED: SPIR25TA5 PO (10:30)
[2022-05-15] MEDS ORDERED: ATOR80TA76 PO (10:30)
[2022-05-15] MEDS ORDERED: NITR0.4T42 SL (10:30)
--- NOTE | 2022-05-15 10:35 | Discharge Summary ---
Diagnosis/Chief Complaint Date of Admission May 13, 2022 at 20:27 Date of Discharge Discharge Date: May 15, 2022 Discharge Diagnosis Assessment: Status post STEMI with episode of ventricular fibrillation status post electrical shock in ER Status post stent placement during emergent cath Depression Hypothyroidism Recent weight loss Recent return to smoking Discharge Summary Discharge Physical Examination Allergies: Coded Allergies: No Known Drug Allergies (Unverified , 11/17/20) Vitals & I&Os Vital Signs Date Time Temp Pulse Resp B/P (MAP) Pulse Ox O2 Delivery O2 Flow Rate FiO2 05/15/22 14:53 72 18 109/78 96 Room Air 05/15/22 11:54 36.0 05/13/22 19:31 15.00 General Appearance: Alert, Oriented X3, Cooperative Respiratory: Clear to Auscultation Cardiovascular: Regular Rate Psych/Mental Status: Mental Status NL Hospital Course Was the Problem List Reviewed?: Yes Standard hospital course she was admitted following an acute myocardial in farction STEMI and experiencing ventricular fibrillation in the ER status post 1 shock and return to normal sinus rhythm then being taken to cardiac catheterization with emergent stent placement by Dr. Patel. Patient doing well during hospital course and no further ventricular arrhythmia noted she was discharged improved condition. Labs (last 24 hrs) Laboratory Tests 05/13/22 18:55: White Blood Count 14.9H, Red Blood Count 4.41, Hemoglobin 14.7, Hematocrit 41, Mean Corpuscular Volume 94, Mean Corpuscular Hemoglobin 33, Mean Corpuscular Hemoglobin Concent 36, Red Cell Distribution Width 11.5, Platelet Count 359, Mean Platelet Volume 8.6L, Immature Granulocyte % (Auto) 0, Neutrophils (%) (Auto) 38L, Lymphocytes (%) (Auto) 54H, Monocytes (%) (Auto) 6, Eosinophils (%) (Auto) 1, Basophils (%) (Auto) 1, Neutrophils # (Auto) 5.7, Lymphocytes # (Auto) 8.1H, Monocytes # (Auto) 0.9, Eosinophils # (Auto) 0.2, Basophils # (Auto) 0.1, Immature Granulocyte # (Auto) 0.0, Neutrophils % (Manual) 38, Monocytes % (Manual) 6, Eosinophils % (Manual) 2, Band Neutrophils 54, Blood Morphology Comment NORMAL, Prothrombin Time 12.4, INR Comment 0.9, Activated Partial Thromboplast Time 26, Sodium Level 143, Potassium Level 3.3L, Chloride Level 107, Carbon Dioxide Level 19L, Anion Gap 17H, Blood Urea Nitrogen 8, Creatinine 0.91, Estimat Glomerular Filtration Rate 70, BUN/Creatinine Ratio 9, Glucose Level 119H, Calcium Level 10.2H, Corrected Calcium 10.0, Magnesium Level 1.9, Total Bilirubin 0.2, Aspartate Amino Transf (AST/SGOT) 18, Alanine Aminotransferase (ALT/SGPT) 18, Alkaline Phosphatase 101, Myoglobin 31.5, Troponin I 0.045H, Total Protein 7.6, Albumin 4.3 05/14/22 04:45: White Blood Count 14.2H, Red Blood Count 3.91, Hemoglobin 13.0, Hematocrit 37, Mean Corpuscular Volume 95, Mean Corpuscular Hemoglobin 33, Mean Corpuscular Hemoglobin Concent 35, Red Cell Distribution Width 11.7, Platelet Count 277, Mean Platelet Volume 8.8L, Sodium Level 137, Potassium Level 3.4L, Chloride Level 107, Carbon Dioxide Level 19L, Anion Gap 11, Blood Urea Nitrogen 11, Creatinine 0.73, Estimat Glomerular Filtration Rate 92, BUN/Creatinine Ratio 15, Glucose Level 117H, Calcium Level 9.0, Corrected Calcium 9.3, Total Bilirubin 0.4, Aspartate Amino Transf (AST/SGOT) 45H, Alanine Aminotransferase (ALT/SGPT) 21, Alkaline Phosphatase 87, Troponin I 2.874*H, Total Protein 6.3L, Albumin 3.6, Triglycerides Level 555H, Cholesterol Level 212H, LDL Cholesterol Direct 105, VLDL Cholesterol , HDL Cholesterol 35L, Thyroid Stimulating Hormone (TSH) 1.43 05/15/22 07:01: White Blood Count 9.4, Red Blood Count 4.01, Hemoglobin 13.3, Hematocrit 38, Mean Corpuscular Volume 94, Mean Corpuscular Hemoglobin 33, Mean Corpuscular He moglobin Concent 35, Red Cell Distribution Width 11.6, Platelet Count 252, Mean Platelet Volume 8.6L, Immature Granulocyte % (Auto) 0, Neutrophils (%) (Auto) 61, Lymphocytes (%) (Auto) 29, Monocytes (%) (Auto) 8, Eosinophils (%) (Auto) 1, Basophils (%) (Auto) 0, Neutrophils # (Auto) 5.8, Lymphocytes # (Auto) 2.8, Monocytes # (Auto) 0.7, Eosinophils # (Auto) 0.1, Basophils # (Auto) 0.0, Immature Granulocyte # (Auto) 0.0, Sodium Level 140, Potassium Level 3.8, Chloride Level 108H, Carbon Dioxide Level 21, Anion Gap 11, Blood Urea Nitrogen 11, Creatinine 0.80, Estimat Glomerular Filtration Rate 82, BUN/Creatinine Ratio 14, Glucose Level 105, Calcium Level 9.3, Magnesium Level 1.9 Pending Labs Laboratory Tests 05/13/22 18:55: White Blood Count 14.9, Red Blood Count 4.41, Hemoglobin 14.7, Hematocrit 41, Mean Corpuscular Volume 94, Mean Corpuscular Hemoglobin 33, Mean Corpuscular Hemoglobin Concent 36, Red Cell Distribution Width 11.5, Platelet Count 359, Mean Platelet Volume 8.6, Immature Granulocyte % (Auto) 0, Neutrophils (%) (Auto) 38, Lymphocytes (%) (Auto) 54, Monocytes (%) (Auto) 6, Eosinophils (%) (Auto) 1, Basophils (%) (Auto) 1, Neutrophils # (Auto) 5.7, Lymphocytes # (Auto) 8.1, Monocytes # (Auto) 0.9, Eosinophils # (Auto) 0.2, Basophils # (Auto) 0.1, Immature Granulocyte # (Auto) 0.0, Neutrophils % (Manual) 38, Monocytes % (Manual) 6, Eosinophils % (Manual) 2, Band Neutrophils 54, Blood Morphology Comment NORMAL, Prothrombin Time 12.4, INR Comment 0.9, Activated Partial Thromboplast Time 26, Sodium Level 143, Potassium Level 3.3, Chloride Level 107, Carbon Dioxide Level 19, Anion Gap 17, Blood Urea Nitrogen 8, Creatinine 0.91, Estimat Glomerular Filtration Rate 70, BUN/Creatinine Ratio 9, Glucose Level 119, Calcium Level 10.2, Corrected Calcium 10.0, Magnesium Level 1.9, Total Bilirubin 0.2, Aspartate Amino Transf (AST/SGOT) 18, Alanine Aminotransferase (ALT/SGPT) 18, Alkaline Phosphatase 101, Myoglobin 31.5, Troponin I 0.045, Total Protein 7.6, Albumin 4.3 05/14/22 04:45: White Blood Count 14.2, Red Blood Count 3.91, Hemoglobin 13.0, Hematocrit 37, Mean Corpuscular Volume 95, Mean Corpuscular Hemoglobin 33, Mean Corpuscular Hemoglobin Concent 35, Red Cell Distribution Width 11.7, Platelet Count 277, Mean Platelet Volume 8.8, Sodium Level 137, Potassium Level 3.4, Chloride Level 107, Carbon Dioxide Level 19, Anion Gap 11, Blood Urea Nitrogen 11, Creatinine 0.73, Estimat Glomerular Filtration Rate 92, BUN/Creatinine Ratio 15, Glucose Level 117, Calcium Level 9.0, Corrected Calcium 9.3, Total Bilirubin 0.4, Aspartate Amino Transf (AST/SGOT) 45, Alanine Aminotransferase (ALT/SGPT) 21, Alkaline Phosphatase 87, Troponin I 2.874, Total Protein 6.3, Albumin 3.6, Triglycerides Level 555, Cholesterol Level 212, LDL Cholesterol Direct 105, VLDL Cholesterol , HDL Cholesterol 35, Thyroid Stimulating Hormone (TSH) 1.43 05/15/22 07:01: White Blood Count 9.4, Red Blood Count 4.01, Hemoglobin 13.3, Hematocrit 38, Mean Corpuscular Volume 94, Mean Corpuscular Hemoglobin 33, Mean Corpuscular Hemoglobin Concent 35, Red Cell Distribution Width 11.6, Platelet Count 252, Mean Platelet Volume 8.6, Immature Granulocyte % (Auto) 0, Neutrophils (%) (Auto) 61, Lymphocytes (%) (Auto) 29, Monocytes (%) (Auto) 8, Eosinophils (%) (Auto) 1, Basophils (%) (Auto) 0, Neutrophils # (Auto) 5.8, Lymphocytes # (Auto) 2.8, Monocytes # (Auto) 0.7, Eosinophils # (Auto) 0.1, Basophils # (Auto) 0.0, Immature Granulocyte # (Auto) 0.0, Sodium Level 140, Potassium Level 3.8, Chloride Level 108, Carbon Dioxide Level 21, Anion Gap 11, Blood Urea Nitrogen 11, Creatinine 0.80, Estimat Glomerular Filtration Rate 82, BUN/Creatinine Ratio 14, Glucose Level 105, Calcium Level 9.3, Magnesium Level 1.9 Discharge Home Medications: Active Scripts Active Jardiance (Empagliflozin) 10 Mg Tablet 10 Mg PO DAILY Aspirin EC (Aspirin) 81 Mg Tablet.dr 81 Mg PO DAILY Spironolactone 25 Mg Tablet 25 Mg PO DAILY Losartan Potassium 25 Mg Tablet 25 Mg PO DAILY Carvedilol 3.125 Mg Tablet 3.125 Mg PO BID Nitroglycerin 0.4 Mg Tab.subl 0.4 Mg SL UD PRN Isosorbide Mononitrate ER (Isosorbide Mononitrate) 30 Mg Tab.er.24h 30 Mg PO DAILY Atorvastatin Calcium 80 Mg Tablet 80 Mg PO HS Brilinta (Ticagrelor) 90 Mg Tablet 90 Mg PO BID Reported Pantoprazole Sodium 20 Mg Tablet.dr 20 Mg PO BID LAST FILLED 07-06-2021 #60/30 DAY SUPPLY [Estradiol/Progestero] 3.5/300 Cap 1 Ea PO DAILY LAST FILLED 03-02-2022 #30/30 DAY SUPPLY COMPOUNDED MED Levothyroxine Sodium 50 Mcg Tablet 50 Mcg PO DAILY Tramadol HCl 50 Mg Tablet 50 Mg PO BID PRN Alprazolam 0.5 Mg Tablet 0.5 Mg PO HS PRN Bupropion Xl (Bupropion HCl) 300 Mg Tab.er.24h 300 Mg PO DAILY Duloxetine HCl 60 Mg Capsule.dr 60 Mg PO DAILY LAST FILLED 11-06-2021 #90/90 DAY SUPPLY Fenofibrate 160 Mg Tablet 160 Mg PO DAILY Neurontin (Gabapentin) 300 Mg Capsule 300 Mg PO BID PRN Instructions to patient/family Please see electronic discharge instructions given to patient. Diagnosis/Problems Diagnosis/Problems (1) STEMI (ST elevation myocardial infarction) Status: Acute Qualifiers: Qualified Codes: I21.3 - ST elevation (STEMI) myocardial infarction of unspecified site (2) Ventricular fibrillation Status: Acute Clinical Quality Measures AMI/AHF: ASA po Prior to arrival: RUMA Sierra DO May 15, 2022 10:35
--- NOTE | 2022-05-15 13:48 | Progress Note - Cardiology ---
Cardiology SOAP Progress Note Subjective: No cp or palp or syncope or shortness of breath No n/v/d No groin or leg discomfort or discoloration No focal weakness Objective: I&O/Vital Signs 05/15/22 05/15/22 05/15/22 05/15/22 02:00 03:00 04:00 04:00 Temp 36.3 Pulse 78 61 Resp 19 14 B/P (MAP) 87/61 (70) 88/49 (62) Pulse Ox 95 96 96 O2 Delivery Room Air Room Air Room Air 05/15/22 05/15/22 05/15/22 05/15/22 04:00 05:00 06:00 07:00 Pulse 66 68 70 73 Resp 19 28 21 13 B/P (MAP) 94/54 (67) 103/67 (79) 97/61 (73) 97/57 (70) Pulse Ox 94 97 98 96 O2 Delivery Room Air Room Air Room Air Room Air 05/15/22 05/15/22 05/15/22 05/15/22 07:00 07:54 08:00 08:00 Temp 36.0 Pulse 78 64 Resp 15 B/P (MAP) 111/67 (82) Pulse Ox 96 94 O2 Delivery Room Air Room Air 05/15/22 05/15/22 05/15/22 05/15/22 09:00 10:00 11:00 11:54 Temp 36.0 Pulse 80 80 84 Resp 22 19 20 B/P (MAP) 109/56 (73) 112/53 (72) 98/68 (78) Pulse Ox 93 95 95 O2 Delivery Room Air Room Air Room Air 05/15/22 05/15/22 12:00 12:00 Pulse 67 Resp 18 B/P (MAP) Pulse Ox 96 97 O2 Delivery Room Air Room Air 05/15/22 00:00 Intake Total 1730 ml Balance 1730 ml Condition: DP/PT pulses palpable Bruising: mild bruising Constitutional: AAO x 3, well-developed, well-nourished Respiratory: No accessory muscle use; other (good, bilateral air entry) Cardiovascular: regular rate-rhythm, S1 and S2, systolic murmur (soft DENNIS at card base) Gastrointestional: No tender; soft; No guarding, No rebound; audible bowel sounds Extremities: No clubbing, No cyanosis, No significant edema Neurologic/Psychiatric: oriented x 3, other (moves all limbs equally) Skin: No rash on exposed areas, No ulcerations on exposed areas Results/Procedures: Labs Laboratory Tests 05/15/22 07:01: White Blood Count 9.4, Red Blood Count 4.01, Hemoglobin 13.3, Hematocrit 38, Mean Corpuscular Volume 94, Mean Corpuscular Hemoglobin 33, Mean Corpuscular Hemoglobin Concent 35, Red Cell Distribution Width 11.6, Platelet Count 252, Mean Platelet Volume 8.6L, Immature Granulocyte % (Auto) 0, Neutrophils (%) (A uto) 61, Lymphocytes (%) (Auto) 29, Monocytes (%) (Auto) 8, Eosinophils (%) (Auto) 1, Basophils (%) (Auto) 0, Neutrophils # (Auto) 5.8, Lymphocytes # (Auto) 2.8, Monocytes # (Auto) 0.7, Eosinophils # (Auto) 0.1, Basophils # (Auto) 0.0, Immature Granulocyte # (Auto) 0.0, Sodium Level 140, Potassium Level 3.8, Chloride Level 108H, Carbon Dioxide Level 21, Anion Gap 11, Blood Urea Nitrogen 11, Creatinine 0.80, Estimat Glomerular Filtration Rate 82, BUN/Creatinine Ratio 14, Glucose Level 105, Calcium Level 9.3, Magnesium Level 1.9 Laboratory Tests 05/13/22 18:55 05/14/22 04:45 05/15/22 07:01 A/P: Assessment: Ac ant wall STEMI and VF arrest treated with defib in ER on 05/13/22 - card cath on 05/13/22: stenting of ostial LAD by Dr Patel - maintained on aspirin and Brilinta - no recurrence of arrhythmia since PCI Ischemic cardiomyopathy - card cath of 05/13/22: ejection fraction 40% with anterior wall hypokinesia (prior to coronary intervention) - currently on carvedilol, losartan, spironolactone and empagliflozin; unable to titrate up because of relatively low bp Hyperlipidemia - started on statin Gastroesophageal reflux disease - maintained on Protonix History of chronic pain, back pain. - Maintained on gabapentin Tobaccoism - cessation advised Plan: * I reviewed her records, and interviewed and examined her * She feels well and wishes to go home * Advised increased ambulation. If tolerates w/o symptoms, consider d/c * Advised off tobacco and compliance with cardiac meds * Advised outpt cardiac f/u (Dr Patel) Clinical Quality Measures AMI/AHF: ASA po Prior to arrival: KATHARINE Burch MD [facility] May 15, 2022 13:48
[2022-05-15 14:53] VITALS: BP 109/78
== END 2022-05-15 15:37 | disposition home or self-care (01) | DRG 246 ==
LOC: EDUNIT# 18:37 → ER 18:39 → CATH 18:56 → ICU 20:27
PROVIDERS: ADMIT Internal Medicine Cardiovascular Disease; ATTEND Internal Medicine Cardiovascular Disease
PROC: 4A023N7 Measurement of Cardiac Sampling and Pressure, Left Heart, Percutaneous Approach (ICD-10-PCS; principal; 2022-05-13)
PROC: 027034Z Dilation of Coronary Artery, One Artery with Drug-eluting Intraluminal Device, Percutaneous Approach (ICD-10-PCS; 2022-05-13)
PROC: B2111ZZ Fluoroscopy of Multiple Coronary Arteries using Low Osmolar Contrast (ICD-10-PCS; 2022-05-13)
PROC: 5A2204Z Restoration of Cardiac Rhythm, Single (ICD-10-PCS; 2022-05-13)
DX: I21.09 ST elevation (STEMI) myocardial infarction involving other coronary artery of anterior wall (principal); I49.01 Ventricular fibrillation; I50.21 Acute systolic (congestive) heart failure; E78.5 Hyperlipidemia, unspecified; G43.909 Migraine, unspecified, not intractable, without status migrainosus; K21.9 Gastro-esophageal reflux disease without esophagitis; M19.90 Unspecified osteoarthritis, unspecified site; G89.29 Other chronic pain; M54.9 Dorsalgia, unspecified; F41.9 Anxiety disorder, unspecified; E03.9 Hypothyroidism, unspecified; F17.210 Nicotine dependence, cigarettes, uncomplicated; F32.A Depression, unspecified; I25.10 Atherosclerotic heart disease of native coronary artery without angina pectoris; I11.0 Hypertensive heart disease with heart failure; I25.5 Ischemic cardiomyopathy
CPT/HCPCS: 36415; 71045; 71046; 80048; 80053; 80061; 83735; 83874; 84443; 84484; 85007; 85025; 85027; 85347; 85610; 85730; 93005; 93041; 93306; 93458

== ENCOUNTER → 2022-05-20 | Outpatient (CLI) | payer BC ==
[~2022-05-20] MED LIST changes: +ALPR0.5T7 PO; +ASPI-1238 PO; +ATOR80TA76 PO; +CARV3.122 PO; +EMPA10TA PO; +ESTRADIOL/PROGESTERO PO; +ISOS30TA82 PO; +LEVO50TA6 PO; +LOSA25TA41 PO; +NITR0.4T42 SL; +PANT20TA18 PO; +SPIR25TA5 PO; +TICA90TA PO; +TRM50T PO
--- NOTE | 2022-05-20 10:08 | Diagnostic Imaging Report ---
INDICATION: Hypertension. Proximal abdominal aorta measures 1.7 cm AP x 1.7 cm transverse. Midabdominal aorta measures 1.3 cm AP x 1.4 cm transverse. Distal abdominal aorta measures 1.4 cm AP x 1.7 cm transverse. Right iliac measures 0.9 x 1.4 cm. Left iliac measures 1.0 x 0.8 cm. IMPRESSION: No evidence of abdominal aortic aneurysm. Dictated by: Dictated on workstation # [id number]
== END ==
LOC: RAD 09:45
PROVIDERS: ATTEND Internal Medicine Cardiovascular Disease
DX: I10 Essential (primary) hypertension (principal); I25.10 Atherosclerotic heart disease of native coronary artery without angina pectoris
CPT/HCPCS: 76775

== ENCOUNTER → 2022-08-30 | Outpatient (CLI) | payer MEDICARE, OTHER | LOC: CARD 12:27 | PROVIDERS: ATTEND Internal Medicine Cardiovascular Disease | DX: I10 Essential (primary) hypertension (principal); I25.10 Atherosclerotic heart disease of native coronary artery without angina pectoris | CPT/HCPCS: 93306 ==

== ENCOUNTER → 2022-12-06 | Outpatient (CLI) | payer MEDICARE, OTHER | LOC: RAD 08:58 | PROVIDERS: ATTEND Internal Medicine | DX: Z12.31 Encounter for screening mammogram for malignant neoplasm of breast (principal) | CPT/HCPCS: 77063; 77067 ==

== ENCOUNTER → 2023-04-04 | Outpatient (CLI) | payer MEDICARE, OTHER ==
[~2023-04-04] MED LIST changes: +CATHETER FLUSH 10 ML SYR IVP PRN
[2023-04-04 09:16] VITALS: BP 114/71
--- NOTE | 2023-04-04 12:31 | Cardiology Stress Test Report ---
Stress Test Report Date of Procedure/Referring: Date of Procedure: Apr 04, 2023 PCP Chary Rico DO Admitting Physician Admitting Physician: Attending Physician: Mara Patel MD Baseline Heart Rate: 60 Baseline Blood Pressure: Blood Pressure Systolic: 114 Blood Pressure Diastolic: 71 Vital Signs Date Time Temp Pulse Resp B/P (MAP) Pulse Ox O2 Delivery O2 Flow Rate FiO2 04/04/23 09:16 60 114/71 (85) 98 Room Air Baseline Vital Signs Vital Signs Date Time Temp Pulse Resp B/P (MAP) Pulse Ox O2 Delivery O2 Flow Rate FiO2 04/04/23 09:16 60 114/71 (85) 98 Room Air Baseline EKG: Baseline EKG: NSR Summary: After explaining the procedure and details to the patient, she signed the consent and was brought to the stress nuclear laboratory. Patient exercised on standard [place] protocol, EKG, heart rate and blood pressure were monitored continuously, resting and stress doses of radio tracer were injected, imaging was acquired and reviewed in the short axis, horizontal long axis and vertical long axis views Patient was able to exercise for a total of 12 minutes on [place] protocol, METs 12.1 Maximum heart rate 138 Maximum blood pressure 154/76 Stress EKG, Minimal nondiagnostic changes Recovery EKG, Return to baseline TID: 0.99 SSS: 2 SDS: 2 EF: 59 Conclusion: Excellent exercise tolerance for a total of 12 minutes on standard [place] protocol 12.1 METS achieving 88% of maximal expected heart rate Appropriate heart rate and blood pressure response to exercise return to baseline during recovery Minimal nondiagnostic EKG changes with exercise return to baseline during recovery No ischemia or infarction noted on SPECT images Normal left ventricular size, ejection fraction 59% Copy Copies To 1: CHARY RICO BASHAR J MD Apr 04, 2023 12:31
== END ==
LOC: CARD 07:39
PROVIDERS: ATTEND Internal Medicine Cardiovascular Disease
DX: R06.09 Other forms of dyspnea (principal)
CPT/HCPCS: 78452; 93017; A9502